=== PATIENT | female | born 1975 | race African-American/Black ===

== ENCOUNTER 2019-07-17 12:50 | Emergency (ER) | payer MEDICARE, OTHER ==
[~2019-07-17] VITALS: Ht 160 cm; Wt 131.5 kg
[2019-07-17] MEDS ORDERED: PANTOPRAZOLE SO40 MG ORAL (13:01)
[2019-07-17 13:26] VITALS: BP 105/68
[2019-07-17] MEDS ORDERED: Isovue-300 100ml vial INJ PRN (13:30)
--- NOTE | 2019-07-17 13:48 | NUR ---
ED Nurse Note: lidia gutiérrez done slestablished blood and urine sent to lab.
[2019-07-17 14:03] LABS: BASOPHILS % (AUTO) 1.6 % (0.0-2.0); EOSINOPHILS % (AUTO) 1.4 % (0.0-3.0); HEMATOCRIT 48.2 % (37.0-47.0); LYMPHOCYTES % (AUTO) 33.8 % (20.0-45.0); MEAN CORPUSCULAR VOLUME 89 FL (80-99); NEUTROPHILS % (AUTO) 59.2 % (45.0-75.0); PLATELET COUNT 254 K/UL (150-450); RED BLOOD COUNT 5.43 M/UL (4.20-5.40); RED CELL DISTRIBUTION WIDTH 15.2 % (11.6-14.8); WHITE BLOOD COUNT 7.2 K/UL (4.8-10.8)
[2019-07-17 14:10] LABS: APPEARANCE,URINE CLEAR; BILIRUBIN, URINE NEGATIVE (NEGATIVE); GLUCOSE, URINE (UA) NEGATIVE (NEGATIVE); KETONES,URINE NEGATIVE (NEGATIVE); LEUKOCYTE ESTERASE ,URINE 1+ (NEGATIVE); NITRITE,URINE NEGATIVE (NEGATIVE); PH,URINE 6 (4.5-8.0); PROTEIN,URINE NEGATIVE (NEGATIVE); UROBILINOGEN,URINE NORMAL MG/DL (0.0-1.0)
[2019-07-17 14:12] LABS: COLOR,URINE YELLOW
[2019-07-17 14:15] LABS: INR 0.9 (0.9-1.1)
[2019-07-17 14:17] LABS: ANION GAP 7 mmol/L (5-15); BLOOD UREA NITROGEN 7 mg/dL (7-18); CALCIUM 9.2 MG/DL (8.5-10.1); CARBON DIOXIDE 30 MMOL/L (21-32); CHLORIDE 105 MMOL/L (98-107); CREATININE 0.7 MG/DL (0.55-1.30); POTASSIUM 4.1 MMOL/L (3.5-5.1); SODIUM 142 MMOL/L (136-145)
[2019-07-17 14:22] LABS: ALANINE AMINOTRANSFERASE 28 U/L (12-78); ALBUMIN 3.7 G/DL (3.4-5.0); ALBUMIN/GLOBULIN RATIO 0.8 (1.0-2.7); ALKALINE PHOSPHATASE 100 U/L (46-116); ASPARTATE AMINO TRANSFERASE 19 U/L (15-37); BILIRUBIN,TOTAL 0.5 MG/DL (0.2-1.0)
--- NOTE | 2019-07-17 14:55 | NUR ---
ED Nurse Note: pt walked in from home c/o abd pain robertod brock done blood and urine sent to lab pt medicated . pt down to ct now.
--- NOTE | 2019-07-17 15:34 | Diagnostic Imaging Report ---
Clinical Indication: Abdominal pain, stomach pain Technique: No oral contrast utilized, per emergency room physician request IV administration nonionic contrast. Venous phase spiral acquisition obtained through the abdomen and pelvis. Multiplanar reconstructions were generated. Total dose length product 1333.1 mGycm. CTDIvol(s) 26.25 mGy. Dose reduction achieved using automated exposure control Comparison: none Findings: The lack of enteric contrast limits assessment of the GI tract. No evidence of diverticulosis or diverticulitis. The appendix is normal. No small bowel distention. No free or loculated intraperitoneal gas or fluid is evident. The distal esophagus appears somewhat thick walled. The stomach and duodenum are unremarkable. There is diastases of the rectus abdominis tendon without souleymane herniation. The liver, gallbladder, bile ducts, pancreas, spleen, adrenals, kidneys are unremarkable. No renal or ureteral calculi, hydronephrosis, or hydroureter demonstrated. No retroperitoneal or mesenteric mass or adenopathy. No pelvic mass or adenopathy. Uterus is absent. No pelvic mass or adenopathy. There is a 2.7 cm right ovarian cyst. The included lung bases are clear. The bones demonstrate degenerative spondylosis changes. Impression: Limited assessment of the GI tract, due to lack of enteric contrast administration Apparent mild wall thickening of the distal esophagus, could indicate esophagitis. Correlate with clinical findings No definite acute or significant abnormality otherwise Incidental findings as noted, including benign-appearing right ovarian cyst, degenerative spondylosis The CT scanner at [facility] is accredited by the [employer] and the scans are performed using protocols designed to limit radiation exposure to as low as reasonably achievable to attain images of sufficient resolution adequate for diagnostic evaluation.
--- NOTE | 2019-07-17 15:44 | Emergency Room Report ---
History of Present Illness General Chief Complaint: Abdominal Pain Source: Patient Present Illness HPI 43-year-old female with history of type 2 diabetes currently controlled with metformin and morbidly obese here complaining of 2 weeks of epigastric abdominal pain with burning sensation in her throat. Denies complains of nausea. Denies flushness, chest pain, shortness of breath, diarrhea or constipation. Denies blood in her vomit. Denies fever and chills. Patient was seen by her primary care provider diagnosed with gastritis and given pantoprazole however reports that it does not help her. Patient reports that she is a lot of spicy and acidic food. Patient also is a heavy tobacco smoker. Denies other associated symptoms including urinary frequency. Patient also had a total hysterectomy with exclusion of ovaries 2 years ago. Allergies: Coded Allergies: No Known Allergies (Unverified , 07/17/19) Patient History Past Medical History: see triage record Past Surgical History: unable to obtain Pertinent Family History: none Last Menstrual Period: hysterectomy Now: No Immunizations: UTD Reviewed Nursing Documentation: PMH: Agreed; PSxH: Agreed Nursing Documentation-PMH Past Medical History: No History, Except For Hx Diabetes: Yes - type2 Review of Systems All Other Systems: negative except mentioned in HPI Physical Exam Vital Signs Date Time Temp Pulse Resp B/P (MAP) Pulse Ox O2 Delivery O2 Flow Rate FiO2 07/17/19 12:55 98.2 73 16 105/68 (80) 97 Room Air Sp02 EP Interpretation: reviewed, normal General Appearance: no apparent distress, alert, GCS 15, non-toxic Head: normocephalic, atraumatic Eyes: bilateral eye normal inspection, bilateral eye PERRL ENT: hearing grossly normal, normal pharynx, no angioedema, normal voice Neck: full range of motion, supple/symm/no masses Respiratory: chest non-tender, lungs clear, normal breath sounds, speaking full sentences Cardiovascular #1: regular rate, rhythm, no edema, no murmur Gastrointestinal: normal bowel sounds, non tender, soft, non-distended, no rebound, guarding - Epigastric Genitourinary: no CVA tenderness Musculoskeletal: normal inspection, back normal, digits/nails normal Neurologic: alert, oriented x3, responsive, motor strength/tone normal, sensory intact, speech normal Psychiatric: judgement/insight normal, memory normal, mood/affect normal, no suicidal/homicidal ideation Skin: no rash Lymphatic: no adenopathy Medical Decision Making PA Attestation All my diagnosis and treatment plans were reviewed ad discussed with my supervising physician Dr. Childers Diagnostic Impression: Primary Impression: Right ovarian cyst Additional Impression: Gastritis ER Course 43-year-old female with history of type 2 diabetes currently controlled with metformin and morbidly obese here complaining of 2 weeks of epigastric abdominal pain with burning sensation in her throat. Denies complains of nausea. Denies flushness, chest pain, shortness of breath, diarrhea or constipation. Denies blood in her vomit. Denies fever and chills. Patient was seen by her primary care provider diagnosed with gastritis and given pantoprazole however reports that it does not help her. Patient reports that she is a lot of spicy and acidic food. Patient also is a heavy tobacco smoker. Denies other associated symptoms including urinary frequency. Patient also had a total hysterectomy with exclusion of ovaries 2 years ago. Ddx considered but are not limited to: appendicitis, cholecystis, gastritis, gastroenteritis, UTI, pyelonephritis, diverticulitis, ovarian cyst, gastritis Vital signs: are WNL, pt. is afebrile H&PE are most consistent with: Gastritis, right ovarian cyst ORDERS: abdominal CT, CBC, CMP, UA, lipase, ranitidine ED INTERVENTIONS: Zofran, Pepcid, NS bolus DISCHARGE: At this time pt. is stable for d/c to home. Will provide printed patient care instructions, and any necessary prescriptions. Care plan and follow up instructions have been discussed with the patient prior to discharge. Patient to follow-up with a primary care provider for referral to gastroenterology and possible endoscopy take medication as directed also referred to fixed income portfolio manager regarding right ovarian cyst if worsening symptoms return to the emergency room. CT/MRI/US Diagnostic Results CT/MRI/US Diagnostic Results : Imaging Test Ordered: CT abdomen pelvis with contrast Impression Right 2.7 cm ovarian cyst Last Vital Signs Date Time Temp Pulse Resp B/P (MAP) Pulse Ox O2 Delivery O2 Flow Rate FiO2 07/17/19 14:47 73 16 Room Air 07/17/19 13:26 98.2 105/68 97 Disposition: HOME, SELF-CARE Condition: Stable Scripts Acetaminophen* (TYLENOL EXTRA STRENGTH*) 500 Mg Tablet 500 MG ORAL Q8H PRN for Prn Headache/Temp > 101, #30 TAB 0 Refills Prov: Mekhi New 07/17/19 Ranitidine Hcl* (ZANTAC*) 150 Mg Tablet 150 MG ORAL TWICE A DAY, #30 TAB Prov: Mekhi New 07/17/19 Referrals: [facility]ERR[facility] (PCP) Patient Instructions: Gastritis, Adult, Ovarian Cyst, [id number] Additional Instructions: Follow-up with your primary care provider for referral to gastroenterology for possible endoscopy needed if treatment unsuccessful for gastritis. Have your primary care provider refer you to a fixed income portfolio manager due to your right ovarian cyst. Return to emergency room if worsening symptoms. Mekhi New Jul 17, 2019 15:44
[2019-07-17] MEDS ORDERED: TYLENOL EXTRA500 MG ORAL (15:46)
[2019-07-17] MEDS ORDERED: ZANTAC150 MG ORAL (15:46)
[2019-07-17 16:00] VITALS: BP 145/75
--- NOTE | 2019-07-17 16:00 | NUR ---
ER DISCHARGE NOTE: Patient is cleared to be discharged per PA, pt is aox4, on room air, with stable vital signs. pt was given dc and prescription instructions, pt was able to verbalize understanding, pt id band and iv site removed without complications. pt is able to ambulate with steady gait. pt took all belongings.
== END 2019-07-17 16:00 | disposition home or self-care (01) ==
LOC: EMR 15:18
DX: K29.70 Gastritis, unspecified, without bleeding (principal); N83.201 Unspecified ovarian cyst, right side; E11.9 Type 2 diabetes mellitus without complications
CPT/HCPCS: 36415; 74177; 80053; 81001; 81025; 85025; 85610; 85730; 86850; 86900; 86901; 96361; 96374; 99284; J2405; Q9967